=== PATIENT | male | born 2000 | race Caucasian/White ===

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

== ENCOUNTER 2020-12-08 17:45 | Emergency (ER) | payer MEDICAID, OTHER ==
[~2020-12-08] VITALS: Ht 182.9 cm; Wt 118.0 kg
[2020-12-08 18:00] VITALS: BP 126/69
--- NOTE | 2020-12-08 18:00 | NUR ---
CALLED FOR PT. PT NOT IN LOBBY
--- NOTE | 2020-12-08 20:59 | NUR ---
BEDSIDE REPORT TO LIZZIE VILLALPANDO.
== END 2020-12-08 21:13 | disposition home or self-care (01) ==
LOC: ED 18:00
DX: S90.112A Contusion of left great toe without damage to nail, initial encounter (principal); W20.8XXA Other cause of strike by thrown, projected or falling object, initial encounter; Y93.89 Activity, other specified; Y92.328 Other athletic field as the place of occurrence of the external cause; Y99.8 Other external cause status
CPT/HCPCS: 99283